=== PATIENT | male | born 1990 | race Caucasian/White ===

== ENCOUNTER 2018-12-07 11:29 | Emergency (ER) | payer BC, SELFPAY ==
[2018-12-07 11:32] VITALS: BP 136/80; PULSE 79; RESP 17; TEMP 36.6; O2SAT 96; BMI 29.9
--- NOTE | 2018-12-07 12:20 | RAD_ITS ---
STUDY: X-RAY - LEFT HAND, ATTENTION FIRST FINGER REASON FOR EXAM: Male, 28 years old. WHILE WELDING GOT PUNCTURED BY METAL LEFT THUMB SWELLING AND PAIN TECHNIQUE: 3 view(s) of the finger were obtained. COMPARISON: None. FINDINGS: Normal metacarpal head. Normal metacarpophalangeal joint. Normal proximal phalanx. Normal middle phalanx. Normal distal phalanx. Normal proximal interphalangeal joint. Normal distal interphalangeal joint. RAD/Finger(s) Min 2 Views IMPRESSION: Normal x-ray examination of the finger. Electronically Signed: Raheem Briones, at 13:22 EDT Tel , Service support ,
--- NOTE | 2018-12-07 13:08 | ED.VISSUMM ---
- ER Visit Summary Date of Service: 12/07/18 Chief Complaint: Thumb pain History of Present Illness: The patient is a 28 M who states that 5 days ago he was welding at home when the hot wire he was using axial he went through his glove and contacted his fat pad of the left thumb. He notes swelling and continued pain. Tetanus is up-to-date. On Eliquis for antiphospholipid syndrome Physical Examination: Afebrile vital signs stable Gen: Well-nourished well-developed Head: Normocephalic atraumatic Eyes: Perrl EOMI ENT: TMs clear no rhinorrhea moist mucous membranes Neck: Supple no lymphadenopathy no JVD nontender CVS: Regular rate rhythm no murmurs normal S1-S2 Respiratory: No distress clear to auscultation bilaterally chest nontender Abdomen: Soft nontender nondistended normal bowel sounds no masses Back: Nontender Extremity: The left thumb demonstrates edema. There is a thermal burn that appears well-healing over the fat pad. The fat pad is still soft but swollen no evidence of felon. There is no evidence of tenosynovitis. There is another smaller burn on the medial aspect of the thumb. Skin erythema. Skin: Normal color no rash Neuro: alert orientated ?3 CN II-XII intact normal strength sensation reflexes gait cerebellar Psych: Normal affect normal mood Test Results: Foreign body or air. Emergency Department Course and Treatment: Will be placed on Keflex and placed in a thumb spica splint. I will have him follow-up with Dr. Benites Impression: 1. Left thumb thermal burn This note was generated with [employer] dictation software. It may contain incorrect words, spelling, and punctuation that were not noted in review of the chart prior to signing ED Disposition - Plan for ED Patient: Disposition: Home or Assisted Living Prescriptions: Cephalexin [Keflex] 500 mg PO Q6 #40 cap Referrals: Fabian Benites MD [STAFF PHYSICIAN] - As soon as possible
[2018-12-07 13:37] VITALS: PULSE 82; RESP 16; O2SAT 99
== END 2018-12-07 13:38 | disposition home or self-care (01) ==
PROVIDERS: Emergency Provider Emergency Medicine
DX: T23.112A Burn of first degree of left thumb (nail), initial encounter (principal); X19.XXXA Contact with other heat and hot substances, initial encounter; Y93.89 Activity, other specified; Y92.009 Unspecified place in unspecified non-institutional (private) residence as the place of occurrence of the external cause; Y99.9 Unspecified external cause status; D68.61 Antiphospholipid syndrome; Z79.01 Long term (current) use of anticoagulants
CPT/HCPCS: 73140; 99284